=== PATIENT | male | born 1970 | race African-American/Black ===

== ENCOUNTER 2022-11-02 22:58 | Emergency (ER) | payer OTHER ==
[~2022-11-02] VITALS: Ht 165.1 cm; Wt 90.7 kg
[2022-11-03] LABS: PLATELET COUNT 182 K/uL (142-355)
[2022-11-03 00:02] LABS: POTASSIUM 3.6 mmol/L (3.6-5.2)
[2022-11-03 06:40] VITALS: BP 165/99; TEMP 98.9
== END 2022-11-03 06:40 | disposition short-term general hospital (02) ==
LOC: ED 22:58
PROVIDERS: Emergency Medicine
DX: I16.1 Hypertensive emergency (principal); I21.4 Non-ST elevation (NSTEMI) myocardial infarction; H54.61 Unqualified visual loss, right eye, normal vision left eye
CPT/HCPCS: 36415; 80053; 80307; 81000; 83880; 84484; 85027; 85610; 85730; 93005; 96366; 96375; 99284; J0360; J1644; J2270; J2405; J3490